=== PATIENT | male | born 1990 | race Caucasian/White ===

== ENCOUNTER 2017-09-30 21:35 | Emergency (ER) | payer OTHER ==
[2017-09-30 22:28] VITALS: BP 113/64; PULSE 61; RESP 16; TEMP 98.1; O2SAT 99
[2017-09-30] MEDS ORDERED: Sodium Chloride 0.9% 1,000 ML IV STA (23:24)
--- NOTE | 2017-09-30 23:27 | ED PDOC ---
HPI:Nausea, Vomiting, Diarrhea Time Seen by Provider: 09/30/17 22:45 Chief Complaint (Nursing): GI Problem Chief Complaint (Provider): vomiting, diarrhea History Per: Patient History/Exam Limitations: no limitations Onset/Duration Of Symptoms: Days (5) Current Symptoms Are (Timing): Still Present Additional Complaint(s): 27 y/o male presents with nonbloody diarrhea x 5 days. Associated diffuse abdominal cramping. Patient states today he vomited once, and now is experiencing pain in center of chest and bottom of throat. Saw PMD 5 days ago for diarrhea and abdominal pain and prescribed pepcid. Denies fever, cough, congestion, shortness of breath, palpitations, urinary symptoms, recent travel, sick contacts. Past Medical History Reviewed: Historical Data, Nursing Documentation, Vital Signs Vital Signs: Last Vital Signs Temp 98.1 F 09/30/17 22:22 Pulse 61 09/30/17 22:22 Resp 16 09/30/17 22:22 BP 113/64 09/30/17 22:22 Pulse Ox 99 09/30/17 22:22 - Medical History PMH: No Chronic Diseases - Surgical History Surgical History: No Surg Hx - Family History Family History: States: No Known Family Hx - Living Arrangements Living Arrangements: Alone - Home Medications Home Medications: Ambulatory Orders Medication Instructions Recorded Dicyclomine [Bentyl] 20 mg PO TID PRN #15 tab 10/01/17 Ondansetron ODT [Zofran ODT] 4 mg PO Q8 PRN #10 odt 10/01/17 - Allergies Allergies/Adverse Reactions: Allergies Allergy/AdvReac Type Severity Reaction Status Date / Time Penicillins Allergy RASH Verified 09/30/17 22:22 Review of Systems ROS Statement: Except As Marked, All Systems Reviewed And Found Negative Cardiovascular: Positive for: Chest Pain Gastrointestinal: Positive for: Nausea, Vomiting, Abdominal Pain, Diarrhea Physical Exam - Reviewed Nursing Documentation Reviewed: Yes Vital Signs Reviewed: Yes - Physical Exam Appears: Positive for: Well, Non-toxic, No Acute Distress Head Exam: Positive for: ATRAUMATIC, NORMAL INSPECTION, NORMOCEPHALIC Skin: Positive for: Normal Color Eye Exam: Positive for: Normal appearance ENT: Positive for: Normal ENT Inspection Cardiovascular/Chest: Positive for: Regular Rate, Rhythm Respiratory: Positive for: Normal Breath Sounds Gastrointestinal/Abdominal: Positive for: Bowel Sounds, Soft, Tenderness ( diffuse discomfort, worse epigastric) Back: Positive for: Normal Inspection Extremity: Positive for: Normal ROM Neurologic/Psych: Positive for: Alert, Oriented - Laboratory Results Result Diagrams: 10/01/17 00:20 10/01/17 00:20 - ECG O2 Sat by Pulse Oximetry: 99 - Progress ED Course And Treament: labs, urine, IV fluids, IV zofran, IV pepcid, PO bentyl, CT EXAM: CT Abdomen and Pelvis With Intravenous Contrast EXAM DATE/TIME: 10/01/2017 2:43 AM CLINICAL HISTORY: 27 years old, male; Pain; Abdominal pain; Generalized; Additional info: Abd pain , vomiting, diarrhea TECHNIQUE: Axial computed tomography images of the abdomen and pelvis with intravenous contrast. All CT scans at this facility use one or more dose reduction techniques, viz.: automated exposure control; ma/kV adjustment per patient size (including targeted exams where dose is matched to indication; i.e. head); or iterative reconstruction technique. Coronal and sagittal reformatted images were created and reviewed. CONTRAST: 95 mL of [id number] administered intravenously. COMPARISON: No relevant prior studies available. FINDINGS: LIMITATIONS: Mild streak/motion artifact. LOWER THORAX: No infiltrate seen in the lung bases. ABDOMEN: LIVER: Tiny (less than 5 mm) fluid density liver lesion incidentally noted. Consistent with the [employer]'s Incidental Findings Committee Report (J Am Lyle Radiol 2010): Unless the patient's specific circumstances suggest otherwise, any liver lesion 0.5 cm or less not otherwise characterized in this report as possessing suspicious or indeterminate imaging features is highly likely to be benign and does not require follow-up imaging or biopsy. GALLBLADDER AND BILE DUCTS: No CT evidence of acute cholecystitis. No evidence of significant biliary ductal dilatation. PANCREAS: No CT evidence of acute pancreatitis. SPLEEN: No acute abnormality of the spleen identified. ADRENALS: No acute abnormality of the adrenal glands identified. KIDNEYS AND URETERS: No acute abnormality of the kidneys identified. No evidence of significant hydrouereteronephrosis. STOMACH AND BOWEL: Diverticulosis of the right colon, with no evidence of acute diverticulitis. Fecalization and mild dilatation of the terminal ileum, most likely due to reflux of stool via a patent ileocecal valve. Otherwise, no significant abnormality of the bowel is identified. No acute abnormality of the stomach or duodenum identified. No evidence of small bowel obstruction. No evidence of diffuse colitis/pancolitis. APPENDIX: Appendix is seen, and is within normal limits in appearance. PELVIS: BLADDER: No acute abnormality of the bladder identified. REPRODUCTIVE: No acute abnormality of the reproductive organs is seen. ABDOMEN and PELVIS: INTRAPERITONEAL SPACE: Tiny amount of free fluid in the right anterior pelvis. This is an abnormal finding in a male patient. No evidence of free air. BONES/JOINTS: No acute fractures or other acute bony abnormality noted. SOFT TISSUES: No acute abnormality of the visualized soft tissues is seen. VASCULATURE: No evidence of abdominal aortic aneurysm. No evidence of periaortic hemorrhage. LYMPH NODES: No evidence of diffuse lymphadenopathy. IMPRESSION: - Tiny amount of pelvic free fluid, of uncertain etiology. - Otherwise, no evidence of significant acute process. - See above for remaining findings. Patient educated on findings, discharged with rx Zofran, Bentyl. Advised to continue Pepcid. [place] diet. Fluids. Follow up PMD 2-3 days. Return precautions given. Disposition - Clinical Impression Clinical Impression: Gastroenteritis - Patient ED Disposition Is Patient to be Admitted: No Counseled Patient/Family Regarding: Studies Performed, Diagnosis, Need For Followup, Rx Given - Disposition Disposition: Routine/Home Disposition Time: 06:10 Condition: IMPROVED Prescriptions: Dicyclomine [Bentyl] 20 mg PO TID PRN #15 tab PRN Reason: Pain, Mild (1-3) Ondansetron ODT [Zofran ODT] 4 mg PO Q8 PRN #10 odt PRN Reason: Nausea/Vomiting Instructions: Viral Gastroenteritis Forms: [employer] (Persian)
[2017-10-01 00:23] LABS: EOS % 0.4 % (0.0-4.0); HEMOGLOBIN 14.2 g/dL (12.0-18.0); LYMPH # 1.7 K/uL (1.0-4.3); MEAN CELL VOLUME 97.7 fl (80.0-94.0); MEAN CORPUSCULAR HEMOGLOBIN 32.9 pg (27.0-31.0); MEAN CORPUSCULAR HGB CONC 33.7 g/dL (33.0-37.0); MEAN PLATELET VOLUME 7.3 fl (7.2-11.7); MONO # 0.3 K/uL (0.0-0.8); MONO % 5.7 % (0.0-10.0); NEUT # 2.7 K/uL (1.8-7.0); NEUT % 56.9 % (50.0-75.0); NRBC % 0.1 % (0.0-0.0); RBC 4.3 Mil/uL (4.40-5.90); RED CELL DISTRIBUTION WIDTH 12.7 % (11.5-14.5); WHITE BLOOD COUNT 4.8 K/uL (4.8-10.8)
[2017-10-01 00:32] LABS: ALB/GLOB RATIO 1.3 (1.0-2.1); ALBUMIN 4.3 g/dL (3.5-5.0); ALT/SGPT 41 U/L (21-72); AST/SGOT 21 U/L (17-59); BLOOD UREA NITROGEN 18 mg/dl (9-20); CALCIUM 9.3 mg/dL (8.4-10.2); GFR AFRICAN-AMERICAN > 60; GFR NON-AFRICAN AMERICAN > 60; LIPASE 139 U/L (23-300)
[2017-10-01 01:06] LABS: URINE BILIRUBIN NEGATIVE (NEGATIVE); URINE BLOOD NEGATIVE (NEGATIVE); URINE CLARITY CLEAR (Clear); URINE COLOR YELLOW (YELLOW); URINE GLUCOSE (UA) NEG (Normal); URINE LEUKOCYTE ESTERASE NEG Leu/uL (Negative); URINE NITRATE NEGATIVE (NEGATIVE); URINE PROTEIN NEGATIVE (NEGATIVE); URINE UROBILINOGEN 0.2-1.0 mg/dL (0.2-1.0)
[2017-10-01] MEDS ORDERED: Iohexol 240 (50 ml) PO ONE (02:43)
[2017-10-01] MEDS ORDERED: Sodium Chloride 0.9% 100 ML ONE (04:57)
[2017-10-01] MEDS ORDERED: Iohexol 300 100 ML IJ ONE (04:57)
--- NOTE | 2017-10-01 06:06 | CT ---
EXAM: CT Abdomen and Pelvis With Intravenous Contrast EXAM DATE/TIME: 10/01/2017 2:43 AM CLINICAL HISTORY: 27 years old, male; Pain; Abdominal pain; Generalized; Additional info: Abd pain, vomiting, diarrhea TECHNIQUE: Axial computed tomography images of the abdomen and pelvis with intravenous contrast. All CT scans at this facility use one or more dose reduction techniques, viz.: automated exposure control; ma/kV adjustment per patient size (including targeted exams where dose is matched to indication; i.e. head); or iterative reconstruction technique. Coronal and sagittal reformatted images were created and reviewed. CONTRAST: 95 mL of [id number] administered intravenously. COMPARISON: No relevant prior studies available. FINDINGS: LIMITATIONS: Mild streak/motion artifact. LOWER THORAX: No infiltrate seen in the lung bases. ABDOMEN: LIVER: Tiny (less than 5 mm) fluid density liver lesion incidentally noted. Consistent with the [employer]?s Incidental Findings Committee Report (J Am Lyle Radiol 2010): Unless the patient?s specific circumstances suggest otherwise, any liver lesion 0.5 cm or less not otherwise characterized in this report as possessing suspicious or indeterminate imaging features is highly likely to be benign and does not require follow-up imaging or biopsy. GALLBLADDER AND BILE DUCTS: No CT evidence of acute cholecystitis. No evidence of significant biliary ductal dilatation. PANCREAS: No CT evidence of acute pancreatitis. SPLEEN: No acute abnormality of the spleen identified. ADRENALS: No acute abnormality of the adrenal glands identified. KIDNEYS AND URETERS: No acute abnormality of the kidneys identified. No evidence of significant hydrouereteronephrosis. STOMACH AND BOWEL: Diverticulosis of the right colon, with no evidence of acute diverticulitis. Fecalization and mild dilatation of the terminal ileum, most likely due to reflux of stool via a patent ileocecal valve. Otherwise, no significant abnormality of the bowel is identified. No acute abnormality of the stomach or duodenum identified. No evidence of small bowel obstruction. No evidence of diffuse colitis/pancolitis. APPENDIX: Appendix is seen, and is within normal limits in appearance. PELVIS: BLADDER: No acute abnormality of the bladder identified. REPRODUCTIVE: No acute abnormality of the reproductive organs is seen. ABDOMEN and PELVIS: INTRAPERITONEAL SPACE: Tiny amount of free fluid in the right anterior pelvis. This is an abnormal finding in a male patient. No evidence of free air. BONES/JOINTS: No acute fractures or other acute bony abnormality noted. SOFT TISSUES: No acute abnormality of the visualized soft tissues is seen. VASCULATURE: No evidence of abdominal aortic aneurysm. No evidence of periaortic hemorrhage. LYMPH NODES: No evidence of diffuse lymphadenopathy. IMPRESSION: - Tiny amount of pelvic free fluid, of uncertain etiology. - Otherwise, no evidence of significant acute process. - See above for remaining findings.
--- NOTE | 2017-10-01 11:46 | RAD ---
HISTORY: chest pain COMPARISON: No prior. TECHNIQUE: Chest PA and lateral FINDINGS: LUNGS: No active pulmonary disease. PLEURA: No significant pleural effusion identified. No pneumothorax apparent. CARDIOVASCULAR: Normal. OSSEOUS STRUCTURES: No significant abnormalities. VISUALIZED UPPER ABDOMEN: Normal. OTHER FINDINGS: None. IMPRESSION: No acute cardiopulmonary disease appreciated.
== END 2017-10-01 06:41 | disposition home or self-care (01) ==
LOC: H.ER 21:35
DX: K52.9 Noninfective gastroenteritis and colitis, unspecified (principal); Z88.0 Allergy status to penicillin
CPT/HCPCS: 71046; 74177; 80053; 81003; 83690; 84484; 85025; 96374; 99283; J2405; J7040; Q9967